=== PATIENT | male | born 1970 | race Caucasian/White ===

== ENCOUNTER 2016-05-13 19:16 | Emergency (ER) | payer MEDICARE ==
[~2016-05-13] VITALS: Ht 162.6 cm; Wt 81.6 kg
[2016-05-13 19:20] VITALS: BP 158/99; PULSE 70; RESP 17; TEMP 97.5; O2SAT 96
--- NOTE | 2016-05-13 19:20 | NUR ---
Patient triaged and placed in waiting room. VSS and patient appears in no acute distress at this time. Accompanied by self, awaiting available bed, and MD notified of need for MSE.
--- NOTE | 2016-05-13 19:53 | NUR ---
Patient to ER bed 7 to gown for evaluation. Side rails up. Report given to Vanessa STERLING.
--- NOTE | 2016-05-13 20:10 | NUR ---
Patient alert and oriented x 4. Came in the ER with a complaint of left shoulder pain that radiates to his left chest which started a couple of hours ago. Patient also complains of stomach pain which, per patient has been going on for years but recently the stomach pain is more. Pain scale 7/10. Denies nausea, vomiting, diarrhea or headache. No acute distress or SOB noted. Will continue to monitor.
--- NOTE | 2016-05-13 20:13 | NUR ---
ER Dr. Haney at bedside examining patient.
--- NOTE | 2016-05-13 20:40 | NUR ---
Patient came back from x-ray. No acute distress or SOB noted.
[2016-05-13 20:42] LABS: BASOPHILS % (AUTO) 0.6 % (0.0-2.0); EOSINOPHILS # (AUTO) 0.3 K/uL (0.0-0.4); EOSINOPHILS % (AUTO) 3.8 % (0.0-4.0); HEMATOCRIT 43.8 % (36-54); HEMOGLOBIN 15.5 g/dL (14.0-18.0); LYMPHOCYTES # (AUTO) 1.8 K/uL (1.0-5.5); LYMPHOCYTES % (AUTO) 25.7 % (20.5-51.5); MEAN CORPUSCULAR HEMOGLOBIN 32 pg (27-31); MEAN CORPUSCULAR HGB CONC 35 % (32-36); MEAN CORPUSCULAR VOLUME 91 fL (79.0-98.0); MONOCYTES # (AUTO) 0.6 K/uL (0.0-1.0); NEUTROPHILS # (AUTO) 4.4 K/uL (1.8-7.7); NEUTROPHILS % (AUTO) 60.9 % (40.0-70.0); PLATELET COUNT (AUTO) 196 K/uL (130-430); RED BLOOD CELL COUNT(AUTO) 4.82 MIL/uL (4.2-6.2); RED CELL DISTRIBUTION WIDTH 12.7 % (9.0-15.0); WHITE BLOOD COUNT (AUTO) 7.1 K/uL (4.8-10.8)
[2016-05-13 20:48] LABS: ANION GAP 9 (5-15); CALCIUM 8.9 mg/dL (8.4-11.0); CHLORIDE 105 mmol/L (98-107); CREATININE 0.96 mg/dL (0.55-1.30); GLUCOSE 115 mg/dL (70-99); POTASSIUM 3.3 mmol/L (3.5-5.1); SODIUM SERUM 141 mmol/L (136-145); UREA NITROGEN, BLOOD 12 mg/dL (8-21)
[2016-05-13 20:50] LABS: GFR AFRICAN AMERICAN 108 mL/min (>90)
[2016-05-13 20:57] LABS: ALANINE AMINOTRANSFERASE 131 U/L (12-78); ALBUMIN 3.7 g/dL (3.4-4.8); ASPARTATE AMINOTRANSFERASE 45 U/L (10-37); LIPASE 167 U/L (73-393); TOTAL BILIRUBIN 0.3 mg/dL (0.0-1.0)
[2016-05-13 21:15] VITALS: BP 158/99; PULSE 70; RESP 17; TEMP 97.5; O2SAT 96
[2016-05-13] MEDS ORDERED: LORazepam 1 MG TABLET PO ONE (21:15)
--- NOTE | 2016-05-13 21:15 | NUR ---
Patient given written and verbal discharge instructions and verbalizes understanding. ER MD discussed with patient the results and treatment provided. Given copies of lab tests performed in ER. Patient in stable condition. No acute distress or SOB noted upon discharge. ID arm band removed. Rx of Ativan given. Patient educated on pain management and to follow up with PMD. Opportunity for questions provided and answered.
== END 2016-05-13 21:15 | disposition home or self-care (01) ==
LOC: SED 19:16
DX: F41.9 Anxiety disorder, unspecified (principal); K21.9 Gastro-esophageal reflux disease without esophagitis; Z87.442 Personal history of urinary calculi; Z87.891 Personal history of nicotine dependence; Z88.6 Allergy status to analgesic agent; Z88.5 Allergy status to narcotic agent
CPT/HCPCS: 36415; 71010; 80053; 83690-TC; 84484; 85025; 93005; 99285

== ENCOUNTER 2017-04-28 18:04 | Emergency (ER) | payer MEDICARE ==
[~2017-04-28] VITALS: Ht 162.6 cm; Wt 90.7 kg
[2017-04-28 18:13] VITALS: BP_SYST 121
[2017-04-28] MEDS ORDERED: KETOROLAC TROMETHAMINE 30 MG VIAL IVP ONE (18:30)
[2017-04-28 18:40] LABS: BILIRUBIN,URINE NEGATIVE (NEGATIVE); BLOOD, URINE NEGATIVE (NEGATIVE); CLARITY/URINE CLEAR (CLEAR); COLOR,URINE YELLOW (YELLOW); GLUCOSE,URINE NEGATIVE (NEGATIVE); KETONES,URINE NEGATIVE (NEGATIVE); LEUKOCYTE ESTERASE ,URINE NEGATIVE (NEGATIVE); NITRITE, URINE NEGATIVE (NEGATIVE); PH,URINE 6.5 (5.0-8.0); PROTEIN URINE NEGATIVE (NEGATIVE); UROBILINOGEN,URINE 0.2 (0.2-1.0)
[2017-04-28 19:03] LABS: BASOPHILS % (AUTO) 0.6 % (0.0-2.0); EOSINOPHILS # (AUTO) 0.2 K/uL (0.0-0.4); EOSINOPHILS % (AUTO) 2.9 % (0.0-4.0); HEMATOCRIT 46.4 % (36-54); HEMOGLOBIN 15.6 g/dL (14.0-18.0); LYMPHOCYTES # (AUTO) 1.8 K/uL (1.0-5.5); LYMPHOCYTES % (AUTO) 31.9 % (20.5-51.5); MEAN CORPUSCULAR HEMOGLOBIN 31 pg (27-31); MEAN CORPUSCULAR HGB CONC 34 % (32-36); MEAN CORPUSCULAR VOLUME 91 fL (79.0-98.0); MONOCYTES # (AUTO) 0.5 K/uL (0.0-1.0); NEUTROPHILS # (AUTO) 3.1 K/uL (1.8-7.7); NEUTROPHILS % (AUTO) 55.6 % (40.0-70.0); PLATELET COUNT (AUTO) 232 K/uL (130-430); RED BLOOD CELL COUNT(AUTO) 5.09 MIL/uL (4.2-6.2); RED CELL DISTRIBUTION WIDTH 12.6 % (9.0-15.0); WHITE BLOOD COUNT (AUTO) 5.6 K/uL (4.8-10.8)
[2017-04-28 19:07] LABS: CALCIUM 8.9 mg/dL (8.4-11.0); CREATININE 0.97 mg/dL (0.55-1.30); POTASSIUM 3.7 mmol/L (3.5-5.1)
[2017-04-28 19:11] LABS: TOTAL BILIRUBIN 0.4 mg/dL (0.0-1.0)
[2017-04-28 20:10] VITALS: BP_SYST 131
== END 2017-04-28 20:10 | disposition home or self-care (01) ==
LOC: SED 18:04
DX: N20.0 Calculus of kidney (principal); K21.9 Gastro-esophageal reflux disease without esophagitis; Z85.6 Personal history of leukemia
CPT/HCPCS: 36415; 74176; 80053; 81003; 83690; 85025; 96374; 99285; J1885

== ENCOUNTER 2018-06-07 17:51 | Emergency (ER) | payer BC, MEDICARE ==
[~2018-06-07] VITALS: Ht 162.6 cm; Wt 86.2 kg
[2018-06-07 18:14] VITALS: BP_SYST 161
--- NOTE | 2018-06-07 18:19 | NUR ---
Patient to ER bed 6 to gown for evaluation. Side rails up. Report given to Adali STERLING.
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
[2018-06-07] MEDS ORDERED: KETOROLAC TROMETHAMINE 30 MG VIAL IVP ONE (18:30)
[2018-06-07 18:35] LABS: BILIRUBIN,URINE NEGATIVE (NEGATIVE); CLARITY/URINE CLEAR (CLEAR); COLOR,URINE YELLOW (YELLOW); GLUCOSE,URINE NEGATIVE (NEGATIVE); KETONES,URINE NEGATIVE (NEGATIVE); LEUKOCYTE ESTERASE ,URINE NEGATIVE (NEGATIVE); NITRITE, URINE NEGATIVE (NEGATIVE); PROTEIN URINE NEGATIVE (NEGATIVE); UROBILINOGEN,URINE 0.2 (0.2-1.0)
[2018-06-07 18:43] LABS: BLOOD, URINE TRACE (NEGATIVE)
[2018-06-07 18:44] LABS: BACTERIA,URINE None Seen /HPF (None Seen); MUCUS,URINE None Seen /LPF (None Seen); RBC,URINE 0-3 /HPF (0-3); WBC,URINE 0-3 /HPF (0-3)
[2018-06-07 19:04] LABS: BASOPHILS % (AUTO) 0.8 % (0.0-2.0); EOSINOPHILS # (AUTO) 0.2 K/uL (0.0-0.4); EOSINOPHILS % (AUTO) 4.1 % (0.0-4.0); HEMATOCRIT 44.7 % (36-54); HEMOGLOBIN 15.4 g/dL (14.0-18.0); LYMPHOCYTES # (AUTO) 1.9 K/uL (1.0-5.5); LYMPHOCYTES % (AUTO) 35.7 % (20.5-51.5); MEAN CORPUSCULAR HEMOGLOBIN 31 pg (27-31); MEAN CORPUSCULAR HGB CONC 35 % (32-36); MEAN CORPUSCULAR VOLUME 91 fL (79.0-98.0); MONOCYTES # (AUTO) 0.5 K/uL (0.0-1.0); NEUTROPHILS # (AUTO) 2.6 K/uL (1.8-7.7); NEUTROPHILS % (AUTO) 49.4 % (40.0-70.0); PLATELET COUNT (AUTO) 218 K/uL (130-430); RED BLOOD CELL COUNT(AUTO) 4.91 MIL/uL (4.2-6.2); RED CELL DISTRIBUTION WIDTH 13.2 % (9.0-15.0); WHITE BLOOD COUNT (AUTO) 5.3 K/uL (4.8-10.8)
--- NOTE | 2018-06-07 19:05 | NUR ---
Report given to Rosemary STERLING
--- NOTE | 2018-06-07 19:05 | NUR ---
Report given to Rosemary STERLING
[2018-06-07 19:11] LABS: CALCIUM 8.7 mg/dL (8.4-11.0); CREATININE 1.09 mg/dL (0.55-1.30); POTASSIUM 3.4 mmol/L (3.5-5.1)
[2018-06-07 19:15] LABS: ALBUMIN 3.7 g/dL (3.4-4.8); TOTAL BILIRUBIN 0.4 mg/dL (0.0-1.0)
[2018-06-07 19:22] VITALS: BP_SYST 128
--- NOTE | 2018-06-07 19:22 | NUR ---
Patient given written and verbal discharge instructions and verbalizes understanding. ER MD discussed with patient the results and treatment provided. Patient in stable condition. ID arm band removed. IV catheter removed intact and dressing applied, no active bleeding. Rx of Flexeril and Naprosyn given. Patient educated on pain management and to follow up with PMD. Pain Scale 0/10. Opportunity for questions provided and answered. Medication side effect fact sheet provided.
== END 2018-06-07 19:22 | disposition home or self-care (01) ==
LOC: SED 17:51
DX: G89.29 Other chronic pain (principal); M54.5 Low back pain; R03.0 Elevated blood-pressure reading, without diagnosis of hypertension; K21.9 Gastro-esophageal reflux disease without esophagitis
CPT/HCPCS: 36415; 72100; 80053; 81000; 85025; 96374; 99284; J1885

== ENCOUNTER 2018-06-11 00:38 | Emergency (ER) | payer BC ==
[~2018-06-11] VITALS: Ht 165.1 cm; Wt 72.6 kg
[2018-06-11 00:52] VITALS: BP_SYST 134
--- NOTE | 2018-06-11 00:55 | NUR ---
0055 - Patient to ER bed 6 to gown for evaluation. Side rails up. Report given to ASHER Pulido.
--- NOTE | 2018-06-11 01:16 | NUR ---
Pt c/o mid lower back pain for the past two weeks, but today the pain has gotten worse. Pt was seen in ED and was prescribed a muscle relaxer. Pt states he took the muscle relaxer an hour prior to coming to ED but no relief. Pt also states medication made him feel nauseous. No other injuries/complaints per patient or noted.
--- NOTE | 2018-06-11 01:18 | NUR ---
ER Dr. Tavera at bedside examining patient.
[2018-06-11] MEDS ORDERED: KETOROLAC TROMETHAMINE 60 MG/2 ML VIAL IM ONE (01:30)
[2018-06-11] MEDS ORDERED: DIAZEPAM 5 MG TABLET (VALIUM) PO ONE (01:30)
[2018-06-11 02:30] VITALS: BP_SYST 129
--- NOTE | 2018-06-11 02:43 | NUR ---
Patient given written and verbal discharge instructions and verbalizes understanding. ER MD discussed with patient the results and treatment provided. Patient in stable condition. ID arm band removed. Rx of Tramadol and Ibuprofen given. Patient educated on pain management and to follow up with PMD. Pain Scale 0. Opportunity for questions provided and answered. Medication side effect fact sheet provided.
== END 2018-06-11 02:30 | disposition home or self-care (01) ==
LOC: SED 00:38
DX: M54.5 Low back pain (principal); K21.9 Gastro-esophageal reflux disease without esophagitis; Z87.442 Personal history of urinary calculi
CPT/HCPCS: 96372; 99283; J1885

== ENCOUNTER 2020-06-03 11:31 | Emergency (ER) | payer BC ==
[~2020-06-03] VITALS: Ht 162.6 cm; Wt 90.7 kg
[2020-06-03 11:36] VITALS: BP_SYST 145
[2020-06-03 12:05] LABS: BASOPHILS % (AUTO) 0.8 % (0.0-2.0); EOSINOPHILS # (AUTO) 0.2 K/uL (0.0-0.4); EOSINOPHILS % (AUTO) 3.9 % (0.0-4.0); HEMATOCRIT 46.8 % (36-54); HEMOGLOBIN 16.2 g/dL (14.0-18.0); LYMPHOCYTES # (AUTO) 1.2 K/uL (1.0-5.5); LYMPHOCYTES % (AUTO) 25.5 % (20.5-51.5); MEAN CORPUSCULAR HEMOGLOBIN 31 pg (27-31); MEAN CORPUSCULAR HGB CONC 35 % (32-36); MEAN CORPUSCULAR VOLUME 90 fL (79.0-98.0); MONOCYTES # (AUTO) 0.3 K/uL (0.0-1.0); MONOCYTES % (AUTO) 7.5 % (1.7-9.3); NEUTROPHILS # (AUTO) 2.8 K/uL (1.8-7.7); NEUTROPHILS % (AUTO) 62.3 % (40.0-70.0); PLATELET COUNT (AUTO) 208 K/uL (130-430); RED BLOOD CELL COUNT(AUTO) 5.21 MIL/uL (4.2-6.2); RED CELL DISTRIBUTION WIDTH 13.6 % (9.0-15.0); WHITE BLOOD COUNT (AUTO) 4.6 K/uL (4.8-10.8)
[2020-06-03 12:05] LABS: BILIRUBIN,URINE NEGATIVE (NEGATIVE); CLARITY/URINE CLEAR (CLEAR); COLOR,URINE YELLOW (YELLOW); GLUCOSE,URINE NEGATIVE (NEGATIVE); KETONES,URINE NEGATIVE (NEGATIVE); LEUKOCYTE ESTERASE ,URINE NEGATIVE (NEGATIVE); NITRITE, URINE NEGATIVE (NEGATIVE); PH,URINE 5.5 (5.0-8.0); PROTEIN URINE NEGATIVE (NEGATIVE); UROBILINOGEN,URINE 0.2 (0.2-1.0)
[2020-06-03 12:12] LABS: BLOOD, URINE TRACE (NEGATIVE)
[2020-06-03 12:16] LABS: CALCIUM 8.7 mg/dL (8.4-11.0); CREATININE 1.16 mg/dL (0.55-1.30); POTASSIUM 3.9 mmol/L (3.5-5.1)
[2020-06-03 12:20] LABS: INR 1.1 (0.80-1.20); PROTHROMBIN TIME 11.3 SECS (9.5-12.5)
[2020-06-03 12:22] LABS: ALBUMIN 3.9 g/dL (3.4-4.8); TOTAL BILIRUBIN 0.4 mg/dL (0.0-1.0)
[2020-06-03 12:26] LABS: BACTERIA,URINE None Seen /HPF (None Seen); WBC,URINE NONE SEEN /HPF (0-3)
[2020-06-03 12:39] LABS: C-REACTIVE PROTEIN QUANT 0.4 mg/dL (0-0.5)
[2020-06-03] MEDS ORDERED: IBUP-1971 PO (13:16)
[2020-06-03] MEDS ORDERED: HYDR-3919 PO (13:16)
[2020-06-03] MEDS ORDERED: IBUPROFEN 800 MG TABLET PO ONE (13:30)
[2020-06-03] MEDS ORDERED: HYDROcodone/ACETAMIN 10-325 MG TAB PO ONE (13:30)
[2020-06-03] MEDS ORDERED: KETOROLAC TROMETHAMINE 60 MG/2 ML VIAL IM ONE (14:45)
[2020-06-03 15:13] VITALS: BP_SYST 134
== END 2020-06-03 15:13 | disposition home or self-care (01) ==
LOC: SED 11:31
DX: R10.11 Right upper quadrant pain (principal); K21.9 Gastro-esophageal reflux disease without esophagitis; N28.9 Disorder of kidney and ureter, unspecified
CPT/HCPCS: 36415; 74176; 76376; 80053; 81000; 82150; 83605; 83690; 85025; 85610; 85730; 86140; 96372; 99284; J1885

== ENCOUNTER 2020-06-26 11:36 | Emergency (ER) | payer BC ==
[~2020-06-26] VITALS: Ht 162.6 cm; Wt 90.7 kg
[~2020-06-26 11:36] MED LIST: HYDR-3919 PO; IBUP-1971 PO
--- NOTE | 2020-06-26 11:40 | NUR ---
Patient to ER bed 7 to gown for evaluation. Side rails up. Report given to MAKSIM STERLING.
--- NOTE | 2020-06-26 11:51 | NUR ---
Pt came to ER after throwing back out yesterday when standing up out of chair. Pt states he took norco at home and a muscle relaxer at night. Pt currently resting in [facility] comfortably, no other complaints, awaiting MD.
--- NOTE | 2020-06-26 11:55 | NUR ---
ER at bedside examining patient.
[2020-06-26] MEDS ORDERED: KETOROLAC TROMETHAMINE 60 MG/2 ML VIAL IM ONE (12:00)
[2020-06-26] MEDS ORDERED: MORPHINE 4 MG INJ. 4 MG/ML VIAL IM ONE (12:45)
[2020-06-26] MEDS ORDERED: NAPR-1172 PO (13:15)
[2020-06-26 13:22] VITALS: BP_SYST 140
--- NOTE | 2020-06-26 13:22 | NUR ---
Patient given written and verbal discharge instructions and verbalizes understanding. ER MD discussed with patient the results and treatment provided. Patient in stable condition. ID arm band removed. Rx of Naprosyn given. Patient educated on pain management and to follow up with PMD. Pain Scale 0/10 Opportunity for questions provided and answered. Medication side effect fact sheet provided.
== END 2020-06-26 13:22 | disposition home or self-care (01) ==
LOC: SED 11:36
DX: G89.29 Other chronic pain (principal); M54.5 Low back pain; K21.9 Gastro-esophageal reflux disease without esophagitis; Z79.899 Other long term (current) drug therapy
CPT/HCPCS: 96372; 99284; J1885; J2270

== ENCOUNTER 2022-07-04 14:56 | Emergency (ER) | payer BC ==
[~2022-07-04] VITALS: Ht 162.6 cm; Wt 86.2 kg
[~2022-07-04 14:56] MED LIST changes: +NAPR-1172 PO
[2022-07-04 15:00] VITALS: BP_SYST 161
[2022-07-04] MEDS ORDERED: NACL 0.9% 1,000 ML IV ONE (15:30)
[2022-07-04 16:12] LABS: BASOPHILS # (AUTO) 0.1 K/uL (0.0-0.2); BASOPHILS % (AUTO) 1.2 % (0.0-2.0); EOSINOPHILS # (AUTO) 0.2 K/uL (0.0-0.4); EOSINOPHILS % (AUTO) 4.5 % (0.0-4.0); HEMATOCRIT 48.1 % (36-54); HEMOGLOBIN 16.5 g/dL (14.0-18.0); LYMPHOCYTES # (AUTO) 1.6 K/uL (1.0-5.5); LYMPHOCYTES % (AUTO) 31.6 % (20.5-51.5); MEAN CORPUSCULAR HEMOGLOBIN 31 pg (27-31); MEAN CORPUSCULAR HGB CONC 34 % (32-36); MEAN CORPUSCULAR VOLUME 91 fL (79.0-98.0); MONOCYTES # (AUTO) 0.5 K/uL (0.0-1.0); MONOCYTES % (AUTO) 9.6 % (1.7-9.3); NEUTROPHILS # (AUTO) 2.7 K/uL (1.8-7.7); NEUTROPHILS % (AUTO) 53.1 % (40.0-70.0); PLATELET COUNT (AUTO) 208 K/uL (130-430); RED BLOOD CELL COUNT(AUTO) 5.26 MIL/uL (4.2-6.2); RED CELL DISTRIBUTION WIDTH 13.6 % (9.0-15.0)
[2022-07-04 16:19] LABS: CALCIUM 8.4 mg/dL (8.4-11.0); CREATININE 0.97 mg/dL (0.55-1.30)
[2022-07-04 16:22] LABS: BILIRUBIN,URINE NEGATIVE (NEGATIVE); BLOOD, URINE NEGATIVE (NEGATIVE); CLARITY/URINE CLEAR (CLEAR); COLOR,URINE YELLOW (YELLOW); GLUCOSE,URINE NEGATIVE (NEGATIVE); KETONES,URINE NEGATIVE (NEGATIVE); LEUKOCYTE ESTERASE ,URINE NEGATIVE (NEGATIVE); NITRITE, URINE NEGATIVE (NEGATIVE); PROTEIN URINE NEGATIVE (NEGATIVE); UROBILINOGEN,URINE 0.2 (0.2-1.0)
[2022-07-04 16:24] LABS: ALBUMIN 4.1 g/dL (3.4-4.8); TOTAL BILIRUBIN 0.4 mg/dL (0.0-1.0)
[2022-07-04 18:04] VITALS: BP_SYST 161
== END 2022-07-04 17:53 | disposition home or self-care (01) ==
LOC: SED 14:56
DX: E86.0 Dehydration (principal); F10.20 Alcohol dependence, uncomplicated; R53.1 Weakness; K21.9 Gastro-esophageal reflux disease without esophagitis; Z79.899 Other long term (current) drug therapy; Y90.6 Blood alcohol level of 120-199 mg/100 ml
CPT/HCPCS: 99283; 96360; 80053; 85025; 36415; 81003; J7030

== ENCOUNTER 2022-10-16 09:37 | Emergency (ER) | payer BC ==
[~2022-10-16] VITALS: Ht 162.6 cm; Wt 82.1 kg
[2022-10-16 09:42] VITALS: BP_SYST 135; PULSE 70; RESP 18; TEMP 98.3; O2SAT 97
[2022-10-16] MEDS ORDERED: KETAMINE HCL IN 0.9 % NACL 50 MG/5 ML SYRINGE IV ONE (10:15)
[2022-10-16] MEDS ORDERED: MORPHINE 2 MG/ML INJ. SYRINGE IM ONE (10:15)
[2022-10-16] MEDS ORDERED: SOM350 PO (10:37)
[2022-10-16] MEDS ORDERED: NAPR-688 PO (10:37)
[2022-10-16 11:21] VITALS: BP_SYST 146; PULSE 53; RESP 20; TEMP 98.3; O2SAT 98
== END 2022-10-16 11:21 | disposition home or self-care (01) ==
LOC: SED 09:37
DX: M54.50 Low back pain, unspecified (principal); K21.9 Gastro-esophageal reflux disease without esophagitis; Z85.6 Personal history of leukemia; Z79.899 Other long term (current) drug therapy
CPT/HCPCS: 99284; 96372; J2270

== ENCOUNTER 2023-01-03 11:40 | Emergency (ER) | payer BC ==
[~2023-01-03] VITALS: Ht 162.6 cm; Wt 79.4 kg
[2023-01-03 11:40] VITALS: BP_SYST 136; PULSE 60; RESP 17; TEMP 97.7; O2SAT 98
[~2023-01-03 11:40] MED LIST changes: +NAPR-688 PO; +SOM350 PO
[2023-01-03] MEDS ORDERED: AMOX875T2 PO (12:39)
[2023-01-03] MEDS ORDERED: IBUP-1969 PO (12:39)
== END 2023-01-03 12:49 | disposition home or self-care (01) ==
LOC: SED 11:40
DX: H66.91 Otitis media, unspecified, right ear (principal); K21.9 Gastro-esophageal reflux disease without esophagitis; Z86.011 Personal history of benign neoplasm of the brain; Z85.6 Personal history of leukemia; Z79.899 Other long term (current) drug therapy
CPT/HCPCS: 99283

== ENCOUNTER 2023-06-26 16:11 | Emergency (ER) | payer BC ==
[~2023-06-26] VITALS: Ht 160 cm; Wt 83.9 kg
[~2023-06-26 16:11] MED LIST changes: +AMOX875T2 PO; +IBUP-1969 PO
[2023-06-26 16:30] VITALS: BP_SYST 166; PULSE 75; RESP 18; TEMP 98.8; O2SAT 95
== END 2023-06-26 20:15 | disposition left against medical advice (07) ==
LOC: SED 16:11
DX: N48.89 Other specified disorders of penis (principal); K21.9 Gastro-esophageal reflux disease without esophagitis; Z87.442 Personal history of urinary calculi; Z79.899 Other long term (current) drug therapy; Z79.2 Long term (current) use of antibiotics
CPT/HCPCS: 99291